=== PATIENT | female | born 1965 | race Two or more races ===

== ENCOUNTER 2018-11-10 10:52 | Inpatient (IN) | payer MEDICAID ==
[~2018-11-10] VITALS: Ht 162.6 cm; Wt 78.6 kg
--- NOTE | 2018-11-10 08:10 | NUR ---
[place] hospitalist for diet order, awaiting call back. Addendum: 11/10/18 at 2047 by PING LINARES RN wrong time correct time 2010
[2018-11-10] MEDS ORDERED: SODIUM CHLORIDE 0.9% 1,000 ML IV ONE (11:17)
[2018-11-10] MEDS ORDERED: ASPirin 81 mg TAB PO ONE (11:30)
[2018-11-10 11:35] LABS: Hemoglobin 15.8 g/dL (12.2-16.2); Lymphocytes # (auto) 4.6 uL; Monocytes # (auto) 0.6 uL; Nucleated Red Blood Cells % 0.1 %; Platelet Count (auto) 376 10^3/uL (140-450); Red Cell Distribution Width 14.2 % (11.8-14.3)
[2018-11-10 11:36] LABS: Basophils # (auto) 0.1 uL; Basophils % (auto) 1.2 % (0.0-2.0); Eosinophils # (auto) 0 uL; Eosinophils % (auto) 0.5 % (0.0-7.0); Hematocrit 49.2 % (36.0-46.0); Lymphocytes % (auto) 46.1 % (10.0-50.0); Mean Corpuscular Hgb Conc. 32.2 g/dL (32.0-36.0); Mean Corpuscular Volume 77.7 fL (80.0-100.0); Monocytes % (auto) 5.9 % (0.0-12.0); Neutrophils # (auto) 4.6 uL; Neutrophils % (auto) 46.3 % (37.0-80.0); Red Blood Cells 6.34 10^6/uL (4.0-5.20); White Blood Cell 9.9 10^3/uL (4.4-10.8)
[2018-11-10 11:51] LABS: Albumin 3.6 g/dL (3.4-5.0); Calcium 9.2 mg/dL (8.5-10.1)
[2018-11-10 11:54] LABS: BUN/Creatinine Ratio 13.9; Bilirubin, Total 0.5 mg/dL (0.2-1.0); Total Protein 8.3 g/dL (6.4-8.2)
[2018-11-10 12:12] LABS: INR 0.93 (0.9-1.15); Partial Thromboplastin Time 26.3 sec (23.78-33.04)
[2018-11-10 12:29] LABS: Urine WBC None Seen /hpf (0 - 5)
[2018-11-10 12:38] LABS: Urine Bacteria NONE SEEN /hpf (None Seen); Urine Blood 1+ /uL (Negative); Urine Specific Gravity 1.006 (1.001-1.035)
[2018-11-10] MEDS: NITROGLYCERIN 0.2MG/HR TOPICAL PATCH TD SCH (14:55)
[2018-11-10] MEDS ORDERED: TEMAZEPAM 15 MG CAP PO PRN (15:00)
[2018-11-10] MEDS ORDERED: ACETAMINOPHEN 500 MG TAB PO PRN (15:00)
[2018-11-10] MEDS ORDERED: NITROGLYCERIN 0.4 MG SL TAB SL PRN (15:00)
[2018-11-10] MEDS ORDERED: DEXTROSE (50%) 50ML SYRG IV PRN (15:00)
[2018-11-10] MEDS ORDERED: traMADol HCL 50 MG TAB PO PRN (15:00)
[2018-11-10] MEDS ORDERED: LACTULOSE 20Gm/30ML SOLN PO PRN (15:00)
[2018-11-10] MEDS ORDERED: MORPHINE SULF INJ 2 MG/ML SYRINGE 1ML IV PRN (15:00)
[2018-11-10] MEDS ORDERED: PROMETHAZINE HCL 25 MG/ML 1ML IV PRN (15:00)
[2018-11-10] MEDS ORDERED: LORazepam 0.5 MG TAB PO PRN (15:00)
[2018-11-10] MEDS: SODIUM CHLORIDE 0.9% 1,000 ML IV SCH (15:06)
[2018-11-10] MEDS: PANTOPRAZOLE 40 MG TAB PO SCH (15:10)
[2018-11-10] MEDS: ENOXAPARIN SOD 40 MG/0.4 ML SYRINGE SC SCH (15:10)
[2018-11-10 15:38] LABS: Alcohol, Urine < 3.0 mg/dL (0-5); Amphetamine Screen, Urine NEGATIVE (NEGATIVE); Barbiturate Scree,Urine NEGATIVE (NEGATIVE); Benzodiazephine Screen, Urine NEGATIVE (NEGATIVE); Cannabinoid Screen, Urine NEGATIVE (NEGATIVE); Cocaine Screen, Urine NEGATIVE (NEGATIVE); Opiate Scree,Urine NEGATIVE (NEGATIVE); Phencyclidine Screen, Urine NEGATIVE (NEGATIVE)
[2018-11-10] MEDS: InsuLIN REG 1unit/0.01ml Soln (100units/ml) SC SCH ×2 (17:54→22:00)
[2018-11-10] MEDS: ACCU-CHEK COMFORT CURVE STRIP VI SCH ×2 (17:55→22:23)
--- NOTE | 2018-11-10 18:30 | NUR ---
Telemetry admit from ER [facility] admitted to telemetry unit. No report received. Patient oriented to Barbara Newberry RN primary RN, unit, room, bed, and unit policies regarding patient care and visiting hours. Patient now on continuous telemetry monitoring, tele box #[id number]. Telemetry reading on arrival to unit is NSR at 65. Patient on room air, with saturation of 98%. Pt weighed by bedscale and encouraged to call if they need something. All questions and concerns addressed, patient verbalized understanding. Pt is Icelandic speaking only. Daughter, at bedside, providing language interpretation. Pt denies chest pain at this time. No other c/o pain or discomfort. Note:
[2018-11-10] MEDS ORDERED: METF-370 PO (19:25)
[2018-11-10] MEDS ORDERED: NITR0.4S29 SL (19:25)
[2018-11-10] MEDS ORDERED: PRAV20TA3 PO (19:25)
--- NOTE | 2018-11-10 19:40 | NUR ---
Opening Shift Note Assumed care of patient, awake and alert x4. Kazakh speaking family at bedside for translation. No S/S of distress/SOB on room air. Denies pain at this time. Bed locked in lowest position call light within reach. Instructed on POC and to call for assist PRN, will continue to monitor for changes Q1hr and PRN.
[2018-11-10 22:00] VITALS: BP 152/91
--- NOTE | 2018-11-10 22:00 | NUR ---
RE-paged hospitalist Baltazar awaiting call back
[2018-11-10] MEDS: METOPROLOL TARTRATE 25 MG TAB PO SCH (22:22)
[2018-11-10] MEDS: ATORVASTATIN 20 MG TAB PO SCH (22:22)
--- NOTE | 2018-11-10 22:52 | NUR ---
Hospitalist Baltazar at Nurses station for orders Informed Baltazar that patient was admitted for CP by MD Benjamin with no diet order, updated with trops and pending cardio consultation. Orders read back and verified NPO at this time
[2018-11-11 05:00] VITALS: BP 104/65
[2018-11-11] MEDS: SODIUM CHLORIDE 0.9% 1,000 ML IV SCH (05:47)
[2018-11-11] MEDS: ACCU-CHEK COMFORT CURVE STRIP VI SCH ×2 (05:47→11:41)
[2018-11-11] MEDS: InsuLIN REG 1unit/0.01ml Soln (100units/ml) SC SCH ×2 (05:47→11:30)
--- NOTE | 2018-11-11 06:00 | NUR ---
EKG COMPLETED PLACED IN CHART
[2018-11-11 06:12] LABS: Cholesterol 190 mg/dL (< 200); Triglycerides 180 mg/dL (< 150)
[2018-11-11 06:14] LABS: HDL Cholesterol 54 mg/dL (40-59); LDL Cholesterol 108 mg/dL (< 100)
--- NOTE | 2018-11-11 07:20 | NUR ---
Assumed care of patient, she is resting comfortably with no s/s of distress noted. Bed in lowest locked position. Will continue to monitor.
[2018-11-11 09:00] VITALS: BP 110/79
[2018-11-11] MEDS: PANTOPRAZOLE 40 MG TAB PO SCH (09:58)
[2018-11-11] MEDS: METOPROLOL TARTRATE 25 MG TAB PO SCH ×2 (09:58→21:28)
[2018-11-11] MEDS: ASPirin 81 mg TAB PO SCH (09:58)
[2018-11-11] MEDS: ENOXAPARIN SOD 40 MG/0.4 ML SYRINGE SC SCH (09:59)
[2018-11-11] MEDS: NITROGLYCERIN 0.2MG/HR TOPICAL PATCH TD SCH (10:00)
--- NOTE | 2018-11-11 10:05 | NUR ---
Family at bedside
--- NOTE | 2018-11-11 12:06 | NUR ---
Patient resting comfortably with no s/s of distress noted. Will continue to monitor.
[2018-11-11 13:00] VITALS: BP 157/69
--- NOTE | 2018-11-11 13:50 | NUR ---
Dr Gonzalez at bedside
[2018-11-11 17:00] VITALS: BP 119/79
--- NOTE | 2018-11-11 18:38 | NUR ---
End of shift note Patient is sitting in chair eating dinner with no s/s of distress noted. Family at bedside.
--- NOTE | 2018-11-11 19:35 | NUR ---
Opening Shift Note Assumed care of patient, awake and alert. No S/S of distress/SOB or pain. Family at bedside. Instructed on POC and to call for assist PRN, will continue to monitor for changes Q1hr and PRN.
[2018-11-11] MEDS: ATORVASTATIN 20 MG TAB PO SCH (21:28)
[2018-11-11 21:41] VITALS: BP 149/72
[2018-11-12 04:57] VITALS: BP 115/63
--- NOTE | 2018-11-12 07:54 | NUR ---
SHIFT END PATIENT RESTING IN BED. NO DISTRESS OR SOB NOTED. CARE ENDORSED TO DAY RNFRANCK.
[2018-11-12 09:17] VITALS: BP 120/69
[2018-11-12 12:51] VITALS: BP 158/88
[2018-11-12] MEDS: ENOXAPARIN SOD 40 MG/0.4 ML SYRINGE SC SCH (13:14)
[2018-11-12] MEDS: ATORVASTATIN 20 MG TAB PO SCH (13:15)
[2018-11-12] MEDS: PANTOPRAZOLE 40 MG TAB PO SCH (13:15)
[2018-11-12] MEDS: METOPROLOL TARTRATE 25 MG TAB PO SCH ×2 (13:16→21:59)
[2018-11-12] MEDS: ASPirin 81 mg TAB PO SCH (13:23)
[2018-11-12 16:40] VITALS: BP 136/68
[2018-11-12] MEDS: SIMETHICONE 80 MG CHEWABLE TABLET PO SCH (21:58)
[2018-11-12 22:00] VITALS: BP 113/75
--- NOTE | 2018-11-12 22:00 | NUR ---
EVENING DOSE OF LOPRESSOR HELD FOR HEART RATE OF 56 BPM.
[2018-11-13 04:55] VITALS: BP 105/60
[2018-11-13] MEDS: SIMETHICONE 80 MG CHEWABLE TABLET PO SCH ×4 (05:54→22:02)
--- NOTE | 2018-11-13 06:01 | NUR ---
NO COMPLAINTS OF CHEST PAIN OVERNIGHT. INDIGESTION/GAS HAS IMPROVED W/NEW ORDER AND ADMINISTRATION OF MYLICON TAB.
[2018-11-13 09:00] VITALS: BP 105/60
[2018-11-13] MEDS ORDERED: ADENOSINE 65 MG in GIVE UN-DILUTED 0 ML IV STA (09:13)
[2018-11-13] MEDS: METOPROLOL TARTRATE 25 MG TAB PO SCH ×2 (11:03→22:00)
[2018-11-13] MEDS: ASPirin 81 mg TAB PO SCH (11:03)
[2018-11-13] MEDS: ATORVASTATIN 20 MG TAB PO SCH (11:03)
[2018-11-13] MEDS: PANTOPRAZOLE 40 MG TAB PO SCH (11:04)
[2018-11-13] MEDS: ENOXAPARIN SOD 40 MG/0.4 ML SYRINGE SC SCH (11:05)
[2018-11-13 13:00] VITALS: BP 124/69
[2018-11-13 13:01] VITALS: BP 121/76
[2018-11-13] MEDS ORDERED: ASPI81CH43 PO (13:14)
[2018-11-13] MEDS ORDERED: ATOR20TA50 PO (13:14)
[2018-11-13] MEDS ORDERED: METO25TA4 PO (13:14)
[2018-11-13 15:03] VITALS: BP 107/51
[2018-11-13 21:35] VITALS: BP 115/60
--- NOTE | 2018-11-13 22:00 | NUR ---
METOPROLOL HELD FOR DECREASED HEART RATE OF 58 BPM.
[2018-11-14 04:53] VITALS: BP 102/56
--- NOTE | 2018-11-14 05:08 | NUR ---
REMAINED SINUS FERNANDA DESPITE HOLDING EVENING DOSE OF METOPROLOL.
[2018-11-14] MEDS: SIMETHICONE 80 MG CHEWABLE TABLET PO SCH (06:40)
[2018-11-14 09:00] VITALS: BP 110/60
[2018-11-14] MEDS: ENOXAPARIN SOD 40 MG/0.4 ML SYRINGE SC SCH (10:22)
[2018-11-14] MEDS: ATORVASTATIN 20 MG TAB PO SCH (10:23)
[2018-11-14] MEDS: ASPirin 81 mg TAB PO SCH (10:23)
[2018-11-14] MEDS: PANTOPRAZOLE 40 MG TAB PO SCH (10:36)
[2018-11-14] MEDS: METOPROLOL TARTRATE 25 MG TAB PO SCH (10:37)
--- NOTE | 2018-11-14 14:44 | NUR ---
PATIENT DC HOME FEELING GOOD NOT COMPLAINING OF PAIN VITAL SIGNS IN NORMAL LIMITS TELE SB 59 HER CAME TO PICK HER OUT ALL THE DC INSTRUCTION GAVE TO THE PATIENT //Jagdish MENDOSA
== END 2018-11-14 14:35 | disposition home or self-care (01) | DRG 203 ==
LOC: ER 10:52 → TELE 14:48 → TELE-WESTW 18:25
PROVIDERS: ADMIT Internal Medicine; ATTEND Internal Medicine
DX: R07.89 Other chest pain (principal); E11.9 Type 2 diabetes mellitus without complications; E66.3 Overweight; E78.5 Hyperlipidemia, unspecified; I10 Essential (primary) hypertension; F41.9 Anxiety disorder, unspecified; F32.9 Major depressive disorder, single episode, unspecified; Z82.49 Family history of ischemic heart disease and other diseases of the circulatory system; Z83.3 Family history of diabetes mellitus; Z90.710 Acquired absence of both cervix and uterus; Z79.899 Other long term (current) drug therapy; Z98.51 Tubal ligation status; Z68.29 Body mass index [BMI] 29.0-29.9, adult
CPT/HCPCS: 36415; 71045; 78452; 80053; 80061; 80307; 81001; 82550; 82962; 83036; 83735; 84443; 84484; 85025; 85379; 85610; 85652; 85730; 86141; 93005; 93017; 94761; 96372; G0378; J0153